=== PATIENT | male | born 1950 | race Caucasian/White ===

== ENCOUNTER 2017-07-05 07:53 | Day surgery (SDC) | payer OTHER ==
[2017-06-30 12:01] VITALS: BMI 25.7
[2017-07-05] MEDS ORDERED: LIDOCAINE HCL/PF 2% SDV 5ML VIAL ONE (08:00)
[2017-07-05] MEDS ORDERED: PROPOFOL 20 ML ONE ×2 (08:00)
[2017-07-05 10:05] VITALS: PULSE 70; TEMP 98.1
[2017-07-05 10:52] VITALS: BP 135/74
== END 2017-07-05 10:35 | disposition home or self-care (01) ==
LOC: FASU-ENDO 07:53
PROVIDERS: ATTEND Internal Medicine Gastroenterology
PROC: 0DJD8ZZ Inspection of Lower Intestinal Tract, Via Natural or Artificial Opening Endoscopic (ICD-10-PCS; principal; 2017-07-05 09:32)
DX: Z12.11 Encounter for screening for malignant neoplasm of colon (principal); K57.30 Diverticulosis of large intestine without perforation or abscess without bleeding